=== PATIENT | male | born 1985 | race Caucasian/White ===

== ENCOUNTER 2018-10-09 11:52 | Emergency (ER) | payer BC, OTHER ==
[~2018-10-09] VITALS: Ht 185.4 cm; Wt 101.5 kg
[2018-10-09 11:54] VITALS: BP 136/85
--- NOTE | 2018-10-09 12:26 | NUR ---
PT TO ROOM FROM LOBBY, AWAITING XR READ. FAMILY AT BS.
== END 2018-10-09 13:20 | disposition home or self-care (01) ==
LOC: ED 13:18
DX: S93.491A Sprain of other ligament of right ankle, initial encounter (principal); G89.11 Acute pain due to trauma; X58.XXXA Exposure to other specified factors, initial encounter; Y93.01 Activity, walking, marching and hiking; Y92.098 Other place in other non-institutional residence as the place of occurrence of the external cause; Y99.8 Other external cause status
CPT/HCPCS: 99283